=== PATIENT | female | born 1975 | race Caucasian/White ===

== ENCOUNTER 2022-05-07 00:04 | Emergency (ER) | payer MEDICAID ==
[~2022-05-07] VITALS: Ht 154.9 cm; Wt 61.2 kg
[2022-05-07 00:26] VITALS: BP_SYST 163
--- NOTE | 2022-05-07 00:30 | NUR ---
PATIENT STATES SHE HAS BEEN HAVING CHEST PAIN FOR A FEW HOURS AND IT'S NOT GETTING BETTER. NO OTHER SIGNS AT THIS TIME.
[2022-05-07] MEDS ORDERED: NITROGLYCERIN 0.4 MG TAB.SUBL SL ONE (00:45)
[2022-05-07] MEDS ORDERED: ASPIRIN 325 MG TABLET PO ONE (00:45)
[2022-05-07 01:13] LABS: BASOPHILS % (AUTO) 0.7 % (0.0-2.0); EOSINOPHILS # (AUTO) 0.2 K/uL (0.0-0.4); EOSINOPHILS % (AUTO) 2.8 % (0.0-4.0); HEMATOCRIT 36.4 % (36-48); LYMPHOCYTES # (AUTO) 2.1 K/uL (1.0-5.5); LYMPHOCYTES % (AUTO) 34.8 % (20.5-51.5); MEAN CORPUSCULAR HEMOGLOBIN 29 pg (27-31); MEAN CORPUSCULAR HGB CONC 33 % (32-36); MEAN CORPUSCULAR VOLUME 88 fL (79.0-98.0); MONOCYTES # (AUTO) 0.7 K/uL (0.0-1.0); MONOCYTES % (AUTO) 11.2 % (1.7-9.3); NEUTROPHILS # (AUTO) 3.1 K/uL (1.8-7.7); NEUTROPHILS % (AUTO) 50.5 % (40.0-70.0); PLATELET COUNT (AUTO) 301 K/uL (130-430); RED BLOOD CELL COUNT(AUTO) 4.16 MIL/uL (4.2-6.2); RED CELL DISTRIBUTION WIDTH 13.7 % (9.0-15.0); WHITE BLOOD COUNT (AUTO) 6.1 K/uL (4.8-10.8)
[2022-05-07 01:14] LABS: ANION GAP 7 (5-15); CALCIUM 9.1 mg/dL (8.4-11.0); CHLORIDE 103 mmol/L (98-107); CREATININE 0.73 mg/dL (0.55-1.30); GLUCOSE 104 mg/dL (70-99); POTASSIUM 4.1 mmol/L (3.5-5.1); SODIUM SERUM 139 mmol/L (136-145); UREA NITROGEN, BLOOD 16 mg/dL (8-21)
[2022-05-07 01:22] LABS: ALANINE AMINOTRANSFERASE 32 U/L (12-78); ALBUMIN 3.6 g/dL (3.4-4.8); ASPARTATE AMINOTRANSFERASE 20 U/L (10-37); TOTAL BILIRUBIN 0.4 mg/dL (0.0-1.0)
[2022-05-07 01:33] LABS: GFR AFRICAN AMERICAN 109 mL/min (>90)
[2022-05-07] MEDS ORDERED: PANT20TA2 PO (01:52)
--- NOTE | 2022-05-07 02:21 | NUR ---
Patient given written and verbal discharge instructions and verbalizes understanding. ER MD discussed with patient the results and treatment provided. Patient in stable condition. ID arm band removed. IV catheter removed intact and dressing applied, no active bleeding. Rx of PROTONIX given. Patient educated on pain management and to follow up with PMD. Pain Scale . Opportunity for questions provided and answered. Medication side effect fact sheet provided.
== END 2022-05-07 02:21 | disposition home or self-care (01) ==
LOC: SED 00:04
DX: R07.89 Other chest pain (principal); I10 Essential (primary) hypertension; Z79.899 Other long term (current) drug therapy
CPT/HCPCS: 36415; 71045; 80053; 83880; 84484; 85025; 93005; 99285

== ENCOUNTER 2022-05-09 23:01 | Emergency (ER) | payer MEDICAID ==
[~2022-05-09] VITALS: Ht 175.3 cm; Wt 61.2 kg
[~2022-05-09 23:01] MED LIST: PANT20TA2 PO
[2022-05-09 23:11] VITALS: BP_SYST 147
--- NOTE | 2022-05-09 23:17 | NUR ---
Patient triaged and placed in waiting room. VSS and patient appears in no acute distress at this time. Accompanied by self , awaiting available bed, and MD notified of need for MSE. report given to Krishna DE GUZMAN
--- NOTE | 2022-05-10 | NUR ---
ER Dr.Dela Sheffield examining patient in the triage room.
[2022-05-10] MEDS ORDERED: IBUP-1969 PO (00:37)
[2022-05-10] MEDS ORDERED: METH-634 PO (00:37)
[2022-05-10 01:00] VITALS: BP_SYST 135
--- NOTE | 2022-05-10 01:00 | NUR ---
Patient given written and verbal discharge instructions and verbalizes understanding. ER MD discussed with patient the results and treatment provided. Patient in stable condition. ID arm band removed. Rx of Ibuprofen,Robaxin given. Patient educated on pain management and to follow up with PMD. Pain Scale 4/10. Opportunity for questions provided and answered. Medication side effect fact sheet provided.
== END 2022-05-10 01:00 | disposition home or self-care (01) ==
LOC: SED 23:01
DX: R07.89 Other chest pain (principal); I10 Essential (primary) hypertension; Z79.899 Other long term (current) drug therapy
CPT/HCPCS: 71046-TC; 93005; 99283